=== PATIENT | female | born 1980 | race Caucasian/White ===

== ENCOUNTER → 2018-10-05 | Outpatient (CLI) | payer BC ==
[~2018-10-05] MED LIST: BACTRIM 400 MG-1 TAB PO; IBU600 MG PO; MOTRIN 600600 MG/TAB PO; PERCOCET 325 MG1 TA2 PO; PRENATAL1 TA1 PO; SENOKOT S 50 MG1 TAB PO; ZANTAC 150MG T150 MG PO
== END ==
LOC: COL.RAD 13:40
DX: S43.492A Other sprain of left shoulder joint, initial encounter (principal)
CPT/HCPCS: A9585; Q9967

== ENCOUNTER → 2018-10-19 | Outpatient (CLI) | payer BC | LOC: COL.RAD 13:33 | DX: S43.402A Unspecified sprain of left shoulder joint, initial encounter (principal) | CPT/HCPCS: J3301; Q9967 ==